=== PATIENT | female | born 1990 | race African-American/Black ===

== ENCOUNTER 2016-12-12 17:59 | Emergency (ER) | payer MEDICARE, MEDICAID ==
[~2016-12-12] VITALS: Ht 154.9 cm; Wt 50.0 kg
[2016-12-12] MEDS ORDERED: IBUPROFEN 600MG TABLET PO ONE (20:15)
[2016-12-12 21:50] VITALS: BP 117/77
== END 2016-12-12 22:56 | disposition home or self-care (01) ==
LOC: ER 20:00
DX: S93.692A Other sprain of left foot, initial encounter (principal); G91.9 Hydrocephalus, unspecified; W19.XXXA Unspecified fall, initial encounter; Y93.02 Activity, running; Y99.8 Other external cause status; Y92.89 Other specified places as the place of occurrence of the external cause; Z98.2 Presence of cerebrospinal fluid drainage device
CPT/HCPCS: 73630; 99284